=== PATIENT | male | born 1990 | race Caucasian/White ===

== ENCOUNTER 2018-05-23 18:05 | Emergency (ER) | payer OTHER, SELFPAY ==
[2018-05-23 18:12] VITALS: BP 105/63; PULSE 92; RESP 15; TEMP 37; O2SAT 96; BMI 18.3
--- NOTE | 2018-05-23 19:59 | PC.NURSE ---
Pt denies difficulty with bowels and bladder. States occasional numbness in right leg. 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 Father answers a lot of questions for pt. Father states pt has been working at [employer] for over two years and has had pain off and on but on Friday he was lifting at work and hurt himself more. Pain has not really gone away. upon visualization of back, no swelling noted.
--- NOTE | 2018-05-23 20:12 | ED_ITS ---
HPI - Back Pain/Injury General Chief Complaint: Back Pain/Injury Stated Complaint: pushing freight at work, buldges in mid spine Time Seen by Provider: 05/23/18 19:43 Source: patient and family Mode of arrival: ambulatory Limitations: no limitations History of Present Illness HPI Narrative: 27-year-old nonsmoker presents with his father in the chief complaint of right-sided lower back pain for the past few days. He injured his back while working, pushing heavy loads at a high rate of speed and a walk-in cooler at 20? F. he is lifting and pushing heavy loads while bending and twisting. He felt a sudden pain in his right lower back that causes some pain in his right lateral thigh. He denies any numbness or tingling. He denies any trouble with bowel or bladder control. He denies any direct trauma to the midline bony spine. MD Complaint: back pain Onset (ago): day(s) Duration: constant Similar Symptoms Previously: No Location: lumbar spine Severity: moderate Quality: burning and sharp Relieving factors: immobilization Exacerbating factors: sitting upright and walking Context: while lifting, turning/twisting and bending Associated symptoms: denies other symptoms Related Data Previous Rx's Medication Instructions Recorded cyclobenzaprine 10 mg PO TID PRN #14 tab 05/23/18 ketorolac 10 mg PO Q6H PRN #14 tab 05/23/18 prednisone 20 mg PO DAILY #5 tab 05/23/18 Allergies Allergy/AdvReac Type Severity Reaction Status Date / Time No Known Drug Allergies Allergy Verified 05/23/18 20:14 Review of Systems Review of Systems All systems reviewed & are unremarkable except as noted in HPI and below Constitutional Denies chills, Denies fever(s), Denies lethargy and Denies weakness Eyes Denies change in vision, Denies eye discharge, Denies irritation and Denies loss of vision ENT Ears, Nose, Mouth, and Throat: Denies change in voice, Denies neck pain and Denies sore throat Cardiovascular Denies chest pain, Denies irregular heart rhythm, Denies lightheadedness, Denies palpitations, Denies dyspnea, Denies dyspnea on exertion and Denies orthopnea Respiratory Denies cough, Denies dyspnea, Denies dyspnea on exertion and Denies wheezing Gastrointestinal Gastrointestinal: Denies abdominal pain, Denies change in bowel habits, Denies diarrhea, Denies nausea and Denies vomiting Genitourinary Denies hematuria, Denies flank pain, Denies urinary incontinence and Denies urinary urgency Musculoskeletal Reports back pain and Denies neck pain Integumentary/Breasts Denies pruritus, Denies erythema, Denies rash and Denies wounds Neurologic Denies confusion, Denies loss of vision and Denies weakness Psychiatric Denies anxiety, Denies confusion, Denies depression, Denies homicidal ideation and Denies suicidal ideation Endocrine Denies palpitations Hematologic/Lymphatic Denies easy bruising Allergic/Immunologic Denies wheezing [facility] Social History Smoking Status: Former smoker Exam Narrative Exam Narrative: GEN: AOx3 and in mild distress EYES: Pupils are equal, round, and reactive to light and accommodation. Extraoccular muscles are intact bilaterally. There is no subconjunctival hemorrhage or exudate. CHEST: Lungs are clear to auscultation bilaterally and free of wheezes, rales, or rhonchi. Heart rate is regular rhythm, there are no murmurs, clicks, rubs, or gallops. There is no chest wall tenderness. ABD: Abdomen is soft and nontender. There is no guarding or rebound. Bowel sounds are normal in all 4 quadrants. There is no mass or organomegaly. EXT: Full painless ROM of all extremities with no loss of sensation or strength. SKIN: Warm, pink, and dry. No erythema or rash BACK: bottom turning lathe tender but free of any obvious external abnormalities. Patient exam notes decreased range of motion and muscle spasm, but no CVA tenderness, or vertebral point tenderness. There are no symptoms of cauda equina such as saddle anesthesia, and decreased reflexes, decreased sensation or strength. Initial Vital Signs Initial Vital Signs: Vital Signs Temperature 98.6 F 05/23/18 18:12 Pulse Rate 92 H 05/23/18 18:12 Respiratory Rate 15 05/23/18 18:12 Blood Pressure 105/63 05/23/18 18:12 Pulse Oximetry 96 05/23/18 18:12 Course Orders Ordered: Discontinued Medications Cyclobenzaprine HCl (Flexeril 10 Mg Prepack) 1 bottle MISC SEEINSTR ONE Stop: 05/23/18 20:07 Last Admin: 05/23/18 20:14 Dose: 1 bottle Ketorolac Tromethamine (Toradol) 60 mg IM NOW ONE Stop: 05/23/18 20:07 Last Admin: 05/23/18 20:15 Dose: 60 mg Prednisone (Deltasone) 40 mg PO NOW ONE Stop: 05/23/18 20:07 Last Admin: 05/23/18 20:14 Dose: 40 mg Vital Signs - 8 hr 05/23/18 18:12 Temperature 98.6 F Pulse Rate 92 H Respiratory Rate 15 Blood Pressure 105/63 Pulse Oximetry 96 MDM - Back Pain/Injury MDM Narrative Medical decision making narrative: Multiple etiologies of back pain considered including; Epidural abscess, cauda equina, mass occupying lesion, and other considered Discharge Plan Departure Patient Disposition: Home Clinical Impression: Lumbar radiculopathy Discharge Date/Time: 05/23/18 20:33 Interventions: ED Discharge Assessment Last Done: 05/23/18 20:31 Instructions: DI for Lumbar Radiculopathy Activity Restrictions/Additional Instructions: *You have been diagnosed with [ lumbar radiculopathy ] *What to do: *Take medications as directed *Follow up with your primary care provider in 2-3 days, call for an appointment. Let them know you were seen in the Emergency Department and that we ask that you be seen in follow up *Return to ER if you should have any new, worsening or concerning symptoms Prescriptions: New cyclobenzaprine 10 mg tablet 10 mg PO TID PRN (Reason: muscle spasm) Qty: 14 RF: 0 prednisone 20 mg tablet 20 mg PO DAILY Qty: 5 RF: 0 ketorolac 10 mg tablet 10 mg PO Q6H PRN (Reason: pain) Qty: 14 RF: 0 Stand Alone Forms: Work Release Note
[2018-05-23] MEDS: CYCLOBENZAPRINE 10 MG PREPACK 1 BOTTLE MISC (20:14)
[2018-05-23] MEDS: predniSONE 20 MG TABLET 40 MG PO (20:14)
[2018-05-23] MEDS: KETOROLAC 60 MG/2 ML VIAL IM (20:15)
== END 2018-05-23 20:33 | disposition home or self-care (01) ==
PROVIDERS: Emergency Provider Emergency Medicine
DX: M54.16 Radiculopathy, lumbar region (principal); X50.0XXA Overexertion from strenuous movement or load, initial encounter; Y99.0 Civilian activity done for income or pay
CPT/HCPCS: 96372; 99282; 99283; J1885

== ENCOUNTER → 2018-05-28 10:54 | Outpatient (CLI) | payer OTHER, SELFPAY ==
--- NOTE | 2018-05-28 | DI.RAD.S_ITS ---
PROCEDURE: XR LUMBAR SPINE 2-3V INDICATIONS: LUMBAR DISEASE WITH SCIATICA POST INJURY TECHNIQUE: 3 views of the lumbar spine were acquired. COMPARISON: None. FINDINGS: Bones: No fracture or focal osseous destruction. Mild lower facet arthropathy. No definite disc space narrowing. Mild endplate sclerosis at L1-L2. Soft tissues: Overlying bowel gas pattern is normal. No suspicious soft tissue calcifications. IMPRESSION: Mild degenerative endplate sclerosis at L1-L2. No fracture. Dictated by: Stanton Garrison M.D. on 05/28/2018 at 12:35 Approved by: Stanton Garrison M.D. on 05/28/2018 at 12:38
== END ==
PROVIDERS: PCP Family Medicine; Visit Provider Family Medicine
DX: M51.16 Intervertebral disc disorders with radiculopathy, lumbar region (principal)
CPT/HCPCS: 72100

== ENCOUNTER → 2018-09-07 15:20 | Outpatient (CLI) | payer OTHER, SELFPAY ==
--- NOTE | 2018-09-07 | DI.RAD.S_ITS ---
PROCEDURE: XR THORACIC SPINE 3V INDICATIONS: BACK PAIN TECHNIQUE: 3 views of the thoracic spine were acquired. COMPARISON: None. FINDINGS: Bones: No fractures or dislocations. No suspicious bony lesions. 12 pairs of ribs are noted, and appear intact where visualized. Soft tissues: No paravertebral stripe thickening. IMPRESSION: No compression fracture or spondylolisthesis in thoracic spine. Dictated by: Steve Whatley M.D. on 09/07/2018 at 16:56 Approved by: Steve Whatley M.D. on 09/07/2018 at 16:57
== END ==
PROVIDERS: PCP Family Medicine
DX: M54.9 Dorsalgia, unspecified (principal)
CPT/HCPCS: 72072

== ENCOUNTER 2019-03-11 03:35 | Emergency (ER) | payer OTHER, MEDICAID, SELFPAY ==
[2019-03-11 03:42] VITALS: BP 124/65; PULSE 98; RESP 18; TEMP 36.6; O2SAT 100
--- NOTE | 2019-03-11 04:12 | ED_ITS ---
HPI - Abdominal Pain General Chief Complaint: Abdominal Pain Stated Complaint: sharp piercing abd pain on right side Time Seen by Provider: 03/11/19 03:35 Source: patient Mode of arrival: Ambulatory Limitations: no limitations History of Present Illness HPI narrative: 28-year-old male former smoker with a history of back pain presents with his dad and a chief complaint of a sudden onset right lower quadrant pain that started at about midnight. He felt fine yesterday and when he went to bed and states that this pain came on suddenly and at its most intense was a sharp and stabbing 10/10 with radiation into his right testicle. He denies any fever or chills but has had some nausea and vomiting. At its most intense he could not find a position of comfort and was found writhing in pain. He denies any injury, change in bowel habits for history of the same. MD complaint: abdominal pain Onset (ago): hour(s) Pain Consistency: intermittent Location: RLQ Severity: severe Quality: stabbing and sharp Radiation: RLQ Relieving factors: nothing Exacerbating factors: nothing Associated symptoms: nausea and vomiting Related Data Previous Rx's Medication Instructions Recorded cyclobenzaprine 10 mg PO TID PRN #14 tab 05/23/18 ketorolac 10 mg PO Q6H PRN #14 tab 05/23/18 prednisone 20 mg PO DAILY #5 tab 05/23/18 hydrocodone-acetaminophen 1 tab PO Q4-6H PRN #10 tab 03/11/19 ketorolac 10 mg PO Q6H PRN #14 tab 03/11/19 ondansetron 4 mg PO TID-QID PRN #10 tab 03/11/19 tamsulosin [Flomax] 0.4 mg PO DAILY #10 cap 03/11/19 Allergies Allergy/AdvReac Type Severity Reaction Status Date / Time No Known Drug Allergies Allergy Verified 05/23/18 20:14 Review of Systems Constitutional Constitutional: Denies chills, Denies fatigue, Denies fever(s), Denies frequent falls, Denies lethargy and Denies weakness Eyes Eyes: Denies change in vision, Denies eye discharge, Denies irritation and Denies loss of vision ENT Ears, Nose, Mouth, and Throat: Denies change in voice, Denies dizziness, Denies neck pain, Denies sore throat and Denies throat swelling Cardiovascular Cardiovascular: Denies chest pain, Denies irregular heart rhythm, Denies lightheadedness, Denies palpitations, Denies dyspnea, Denies dyspnea on exertion and Denies orthopnea Respiratory Respiratory: Denies cough, Denies dyspnea, Denies dyspnea on exertion and Denies wheezing Gastrointestinal Gastrointestinal: Reports abdominal pain, Denies change in bowel habits, Denies diarrhea, Reports nausea and Reports vomiting Genitourinary Genitourinary: Denies hematuria, Denies flank pain, Denies urinary incontinence and Denies urinary urgency Musculoskeletal Musculoskeletal: Denies back pain, Denies muscle weakness, Denies neck pain, Denies numbness and Denies tingling Integumentary/Breasts Skin/Breast: Denies pruritus, Denies erythema, Denies rash and Denies wounds Neurologic Neurologic: Denies behavioral changes, Denies confusion, Denies dizziness, Denies frequent falls, Denies loss of vision, Denies numbness, Denies tingling and Denies weakness Psychiatric Psychiatric: Denies anxiety, Denies behavioral changes, Denies confusion, Denies depression, Denies homicidal ideation and Denies suicidal ideation Endocrine Endocrine: Denies fatigue, Denies flushing and Denies palpitations Hematologic/Lymphatic Hematologic/Lymphatic: Denies easy bruising Allergic/Immunologic Allergic/Immunologic: Denies urticaria, Denies throat swelling and Denies wheezing Patient History Social History Smoking Status: Former smoker Social History Smoking Status: Former smoker alcohol intake frequency: holidays/special occasions only Substance Use Type: marijuana Exam Narrative Exam Narrative: GENERAL: [28] year old patient appears stated age. Well- nourished, well-developed patient, in mild distress. HEAD: Atraumatic. Normocephalic. EYES: Pupils equal round and reactive. Extraocular motions intact. No scleral icterus. No injection or drainage. ENT: Nose without bleeding, purulent drainage. Throat without erythema, tonsillar hypertrophy or exudate. Airway patent. NECK: Trachea midline. Non tender CARDIOVASCULAR: Regular rate and rhythm without murmurs, gallops, or rubs. RESPIRATORY: Clear to auscultation. Breath sounds equal bilaterally. No wheezes, rales, or rhonchi. GASTROINTESTINAL: Abdomen soft, tender in the right lower quadrant, nondistended. : Testicular exam performed with patient standing. No scrotal tenderness, no suggestion of hernia. EXTREMITIES: No edema or joint tenderness. BACK: Nontender without deformity or crepitance. No flank tenderness. NEURO: AOx3. SKIN: No rash or erythema of visible areas Initial Vital Signs Initial Vital Signs: Vital Signs Temperature 98 F 03/11/19 03:42 Pulse Rate 98 H 03/11/19 03:42 Respiratory Rate 18 03/11/19 03:42 Blood Pressure 124/65 03/11/19 03:42 Pulse Oximetry 100 03/11/19 03:42 Course Orders Ordered: ED Orders 03/11/19 04:10 Complete Blood Count AUTO DIFF Stat Comprehensive Metabolic Panel Stat Lipase Stat 03/11/19 05:20 Ictotest Urine Stat Urinalysis and Microscopic Stat 03/11/19 05:51 CT abdomen pelvis w con Stat Discontinued Medications Hydrocodone Bitart/Acetaminophen (Vicodin Prepack) 1 bottle MISC SEEINSTR ONE Stop: 03/11/19 06:37 Sodium Chloride (Normal Saline 0.9%) 1,000 mls @ 1,000 mls/hr IV BOLUS ONE Stop: 03/11/19 05:20 Last Infusion: 03/11/19 06:00 Dose: 0 mls/hr Documented by: Admin: 03/11/19 04:29 Dose: 1,000 mls/hr Documented by: [email or web address] Ketorolac Tromethamine (Toradol) 15 mg IV NOW ONE Stop: 03/11/19 04:22 Last Admin: 03/11/19 04:29 Dose: 15 mg Documented by: [email or web address] Ondansetron HCl (Zofran) 4 mg IV NOW ONE Stop: 03/11/19 04:22 Last Admin: 03/11/19 04:28 Dose: 4 mg Documented by: [email or web address] Ondansetron HCl (Zofran Odt Prepack) 1 bottle MISC SEEINSTR ONE Stop: 03/11/19 06:37 Vital Signs Vital signs: Vital Signs - 8 hr 03/11/19 03:42 03/11/19 05:34 03/11/19 06:41 Temperature 98 F Pulse Rate 98 H 88 81 Respiratory Rate 18 18 18 Blood Pressure 124/65 Blood Pressure [Left Arm] 116/75 120/80 Pulse Oximetry 100 98 98 MDM - Abdominal Pain Lab Data Result diagrams: 03/11/19 04:10 03/11/19 04:10 Labs: Lab Results 03/11/19 03/11/19 03/11/19 Range/Units 04:10 04:10 05:20 WBC 9.2 (4.5-11.0) X10^3/uL RBC 4.44 L (4.5-5.9) X10^6/uL Hgb 13.7 (13.5-17.5) g/dL Hct 40.4 L (41-53) % MCV 91.0 (80-100) fL MCH 30.9 (26-34) PG MCHC 34.0 (30-36) % RDW 12.9 (11.6-14.8) % Plt Count 192 (150-400) X10^3/uL Neut % (Auto) 71.4 (50-75) % Lymph % (Auto) 17.8 L (25-40) % [place] % (Auto) 8.5 (3-14) % Eos % (Auto) 2.0 (2-4) % Baso % (Auto) 0.3 (0-2) % Neut # (Auto) 6600 (6368-8404) /uL Lymph # (Auto) 1600 (6750-6479) /uL [place] # (Auto) 800 (0-900) /uL Eos # (Auto) 200 (0-450) /uL Baso # (Auto) 0 (0-100) /uL Sodium 140 (137-145) mmol/L Potassium 3.7 (3.4-5.1) mmol/L Chloride 103 (98-107) mmol/L Carbon Dioxide 26 (22-32) mmol/L BUN 26 H (9-20) mg/dL Creatinine 1.30 H (0.66-1.25) mg/dL Estimated GFR > 60.0 (>60) mL/min BUN/Creatinine Ratio 20.0 (6-22) Glucose 106 H (70-100) mg/dL Calcium 8.9 (8.4-10.2) mg/dL Total Bilirubin 0.9 (0.2-1.3) mg/dL AST 21 (17-59) IU/L ALT 13 L (21-72) IU/L Alkaline Phosphatase 77 (38-126) U/L Total Protein 7.1 (6.3-8.2) g/dL Albumin 4.4 (3.5-5.0) g/dL Globulin 2.7 (1.7-4.1) g/dL Albumin/Globulin Ratio 1.6 (1.0-2.8) Lipase 46 (23-300) U/L Urine Color Yellow Urine Appearance Clear Urine pH 6.5 (4.5-8.0) Ur Specific [place] 1.015 (1.000-1.035) Urine Protein Negative (Negative) Urine Glucose (UA) Negative (Negative) g/dL Urine Ketones Trace H (NEGATIVE) Urine Occult Blood Trace-intact (Negative) Urine Nitrate Negative (Negative) Urine Bilirubin 3+ H (NEGATIVE) Urine Ictotest Positive H (Negative) Urine Urobilinogen 0.2 (0.2) E.U./dL Ur Leukocyte Esterase Negative (NEGATIVE) Urine RBC 1-5/hpf (0-5/HPF) Urine WBC None seen (0-5/HPF) Ur Squamous Epith Cells 0-1 /hpf (0-5/HPF) Urine Bacteria None seen (None) Ur Culture Indicated? Cult not indicated Imaging Data CT scan - abdomen: Radiologist's impression: 3mm obstructing stone at R UVJ Discharge Plan Departure Patient Disposition: Home Clinical Impression: Kidney stone Instructions: DI for Kidney Stones Activity Restrictions/Additional Instructions: *You have been diagnosed with [right-sided kidney stone] *What to do: *Take medications as directed *Follow up with your primary care provider in 2-3 days, call for an appointment. Let them know you were seen in the Emergency Department and that we ask that you be seen in follow up *Return to ER if you should have any new, worsening or concerning symptoms, such as [increasing pain, vomiting, fever over 101 F, shaking chills or other bothersome symptoms] Prescriptions: New tamsulosin [Flomax] 0.4 mg capsule 0.4 mg PO DAILY Qty: 10 RF: 0 hydrocodone-acetaminophen 5-325 mg tablet 1 tab PO Q4-6H PRN (Reason: pain) Qty: 10 RF: 0 ketorolac 10 mg tablet 10 mg PO Q6H PRN (Reason: pain) Qty: 14 RF: 0 ondansetron 4 mg tablet,disintegrating 4 mg PO TID-QID PRN (Reason: nausea and vomiting) Qty: 10 RF: 0 No Action cyclobenzaprine 10 mg tablet 10 mg PO TID PRN (Reason: muscle spasm) Qty: 14 RF: 0 prednisone 20 mg tablet 20 mg PO DAILY Qty: 5 RF: 0 ketorolac 10 mg tablet 10 mg PO Q6H PRN (Reason: pain) Qty: 14 RF: 0 Referrals: Edwige Pillai MD [Non-Staff] - Pantera Harrington MD [Primary Care Provider] -
[2019-03-11] MEDS: ONDANSETRON 4 MG/2 ML INJ IV (04:28)
[2019-03-11] MEDS: KETOROLAC 60 MG/2 ML VIAL 15 MG IV (04:29)
[2019-03-11] MEDS: SODIUM CHLORIDE 0.9% 1,000 ML 1000 ML IV (04:29)
[2019-03-11 04:34] LABS: Add Manual Diff / Slide Review NO; Basophils Absolute Auto 0 /uL (0-100); Basophils Percent Auto 0.3 % (0-2); Eosinophils Absolute Auto 200 /uL (0-450); Hematocrit 40.4 % (41-53); Hemoglobin 13.7 g/dL (13.5-17.5); Lymphocytes Absolute Auto 1600 /uL (1100-4500); Lymphocytes Percent Auto 17.8 % (25-40); Mean Corpuscular Hemoglobin 30.9 PG (26-34); Monocytes Absolute Auto 800 /uL (0-900); Monocytes Percent Auto 8.5 % (3-14); Neutrophils Absolute Auto 6600 /uL (1500-7000); Neutrophils Percent Auto 71.4 % (50-75); Platelet Count 192 X10^3/uL (150-400); Red Blood Cell Count 4.44 X10^6/uL (4.5-5.9); Red Cell Distribution Width 12.9 % (11.6-14.8); White Blood Cell Count 9.2 X10^3/uL (4.5-11.0)
[2019-03-11 04:43] LABS: Alanine Aminotransferase 13 IU/L (21-72); Albumin 4.4 g/dL (3.5-5.0); Albumin Globulin Ratio 1.6 (1.0-2.8); Alkaline Phosphatase 77 U/L (38-126); Aspartate Aminotransferase 21 IU/L (17-59); Bilirubin Total 0.9 mg/dL (0.2-1.3); Blood Urea Nitrogen 26 mg/dL (9-20); Calcium 8.9 mg/dL (8.4-10.2); Carbon Dioxide 26 mmol/L (22-32); Chloride 103 mmol/L (98-107); Estimated Glomerular Filt Rate > 60.0 mL/min (>60); Globulin 2.7 g/dL (1.7-4.1); Glucose 106 mg/dL (70-100); HEMOLYSIS < 15 (0-50); Lipase 46 U/L (23-300); Potassium 3.7 mmol/L (3.4-5.1); Sodium 140 mmol/L (137-145); Total Protein 7.1 g/dL (6.3-8.2)
[2019-03-11 05:34] VITALS: BP 116/75; PULSE 88; RESP 18; O2SAT 98
[2019-03-11 05:34] LABS: Bacteria Urine None Seen; WBC Urine None Seen (0-5/HPF)
[2019-03-11 05:35] LABS: Appearance Urine UA CLEAR; Bilirubin Urine UA 3+ (NEGATIVE); Color Urine UA YELLOW; Glucose Urine UA NEGATIVE (Negative); Ketones Urine UA TRACE (NEGATIVE); Leukocyte Esterase Urine UA NEGATIVE (NEGATIVE); Nitrite Urine UA NEGATIVE (Negative); Occult Blood Urine UA TRACE-INTACT (Negative); Protein Urine UA NEGATIVE (Negative); Specific Gravity Urine UA 1.015 (1.000-1.035); Urobilinogen Urine UA 0.2 E.U./dL (0.2); pH Urine UA 6.5 (4.5-8.0)
[2019-03-11 05:50] LABS: Culture Indicated Urine Cult Not Indicated; Ictotest Urine Positive (Negative); RBC Urine 1-5/HPF (0-5/HPF); Squamous Epithelial Cell Urine 0-1 /HPF (0-5/HPF)
--- NOTE | 2019-03-11 05:51 | DI.CT.S_ITS ---
PROCEDURE: CT ABDOMEN PELVIS W CON INDICATIONS: severe right lower quadrant pain, Nausea, vomiting. possible Appendicitis TECHNIQUE: After the administration of intravenous contrast, 5 mm thick sections acquired from the diaphragm to the symphysis. 5 mm coronal and sagittal reformats were acquired. For radiation dose reduction, the following was used: automated exposure control, adjustment of mA and/or kV according to patient size. COMPARISON: None. FINDINGS: Image quality: Excellent. ABDOMEN: Lung bases: Normal Distal esophagus: Normal Solid organs: Presumed focal fatty infiltration in the falciform ligament Gallbladder: Normal Biliary system: Normal Pancreas: Normal Spleen: Normal Adrenal glands: Normal Moderate right hydroureteronephrosis and associated periureteral inflammatory stranding related to a 3 mm right ureterovesical junction calculus. No left-sided urolithiasis. Peritoneum and bowel: Stomach: Normal Bowel: Normal No free fluid or air. The appendix is within normal limits Lymph nodes and vessels: Abdominal nodes: Normal Aorta and IVC: Normal Miscellaneous: Ventral wall: Normal PELVIS: Genitourinary: Bladder: Normal. Miscellaneous: Inguinal: Normal Pelvic nodes: Normal Bones: No suspicious bony lesions. No vertebral body compression fractures. Chronic cortical irregularity at the anterior left sacroiliac joint. IMPRESSION: Mild-moderately obstructive 3 mm right ureterovesical junction calculus. Normal appendix. Findings concordant with the preliminary study interpretation provided at the time of the exam. Dictated by: Stanton Garrison M.D. on 03/11/2019 at 8:54 Approved by: Stanton Garrison M.D. on 03/11/2019 at 9:07
[2019-03-11 06:41] VITALS: BP 120/80; PULSE 81; RESP 18; O2SAT 98
[2019-03-11] MEDS: HYDROCODONE/ACET 5/325 PREPACK 1 BOTTLE MISC (06:42)
[2019-03-11] MEDS: ONDANSETRON 4 MG ODT PREPACK 1 BOTTLE MISC (06:43)
== END 2019-03-11 06:50 | disposition home or self-care (01) ==
PROVIDERS: Emergency Provider Emergency Medicine; PCP Family Medicine
DX: N20.0 Calculus of kidney (principal)
CPT/HCPCS: 36415; 74177; 80053; 81001; 83690; 85025; 96361; 96374; 96375; 99283; 99285; J1885; J2405; Q9967